=== PATIENT | female | born 1955 | race Caucasian/White ===

== ENCOUNTER → 2017-11-23 | Outpatient (CLI) | payer OTHER ==
[~2017-11-23] MED LIST: GADOXETATE DISODIUM 2.5 MMOL/10 ML ONE
== END | disposition home or self-care (01) ==
LOC: CFH 09:01
PROVIDERS: ATTEND Internal Medicine Gastroenterology
DX: K76.89 Other specified diseases of liver (principal); K57.32 Diverticulitis of large intestine without perforation or abscess without bleeding; Z86.19 Personal history of other infectious and parasitic diseases; Z90.49 Acquired absence of other specified parts of digestive tract
CPT/HCPCS: 74183; 82565; A9581